=== PATIENT | female | born 1990 | race Native Hawaiian/Other Pacific Islander ===

== ENCOUNTER → 2016-11-13 | Outpatient (CLI) | payer OTHER ==
--- NOTE | 2016-11-13 10:56 | REPMRS ---
Patient History The patient states she had a clinical breast exam in 2015.Patient is nulliparous. Family history of breast cancer in mother at age 49. Indicated problem(s): palpable abnormality in the left breast. Left breast lump, patient can't feel lump today. Digital Mammo Diagnostic Bilateral: November 13, 2016 - Exam #: [id number] Bilateral CC and MLO view(s) were taken. Technologist: Minnie Kuhn Technologist FINDINGS: The breast tissue is extremely dense which could obscure a lesion on mammography. There is no evidence of cancer on this mammogram. Given the very dense breast parenchyma and family history, recommend further evaluation with MRI of the breasts. ASSESSMENT: BI-RADS/ACR category 2 mammogram. Benign finding(s). Recommendation Routine screening mammogram of both breasts in 1 year (for women over age 40). This mammogram was interpreted with the aid of an FDA-approved computer-aided dectection system. Electronically Signed By: Aguila Kingston MD 11/13/16 [id number]
== END ==
LOC: EDUNIT# 08:30 → M RAD 10:25
PROVIDERS: ATTEND Physician Assistant
DX: N63 Unspecified lump in breast (principal); Z80.3 Family history of malignant neoplasm of breast

== ENCOUNTER 2017-03-08 14:31 | Emergency (ER) | payer OTHER ==
[~2017-03-08] VITALS: Ht 157.5 cm; Wt 59.0 kg
[2017-03-08 14:33] VITALS: BP 126/68
--- NOTE | 2017-03-08 16:10 | REP ---
PELVIS AND LEFT HIP: AP view of the pelvis and AP and frogleg views of the left hip are performed. There is no acute fracture or dislocation. No intrinsic osseous pathology is seen. Hip joints appear unremarkable. There appears to be a tiny unfused ossicle at the right acetabular margin. IMPRESSION: No acute fracture or dislocation. Signed by Aguila Kingston MD 03/08/2017 04:45 P
== END 2017-03-08 16:43 | disposition home or self-care (01) ==
LOC: M ED 15:11
DX: S76.012A Strain of muscle, fascia and tendon of left hip, initial encounter (principal); X58.XXXA Exposure to other specified factors, initial encounter; Y92.89 Other specified places as the place of occurrence of the external cause; Y93.89 Activity, other specified; Y99.0 Civilian activity done for income or pay

== ENCOUNTER 2017-03-25 23:24 | Emergency (ER) | payer OTHER ==
[~2017-03-25] VITALS: Ht 157.5 cm; Wt 59.0 kg
[2017-03-25] MEDS ORDERED: PROZ10CA7 PO (23:59)
[2017-03-26] MEDS ORDERED: NS 1,000 ML IV ONE ×2 (07:30→09:15)
[2017-03-26 08:05] LABS: BASO # 0.1 K/mm3 (0.0-0.2); BASO % 0.9 % (0.0-1.0); EOS # 0.3 K/mm3 (0.0-0.50); EOS % 4.5 % (0.0-3.0); LARGE UNSTAINED CELL # 0.2 K/mm3 (0.0-0.4); LARGE UNSTAINED CELL % 2.7 % (0.0-4.0); LYMPH # 1.8 K/mm3 (1.5-6.5); LYMPH % 24.3 % (24.0-44.0); MEAN CORPUSCULAR HEMOGLOBIN 31.6 pg (27.0-33.0); MEAN CORPUSCULAR HGB CONC 33.7 g/dl (32.0-36.5); MEAN CORPUSCULAR VOLUME 93.7 fl (80.0-96.0); MONO # 0.3 K/mm3 (0.0-0.8); MONO % 5.1 % (0.0-5.0); NEUTROPHILS # 4.1 K/mm3 (1.8-7.7); NEUTROPHILS % 62.5 % (36.0-66.0); PLATELET COUNT, AUTOMATED 291 k/mm3 (150-450); RED CELL DISTRIBUTION WIDTH 12.5 % (11.5-14.5); WHITE BLOOD COUNT 6.6 K/mm3 (4.0-10.0)
[2017-03-26 08:26] LABS: ALBUMIN 3.7 GM/DL (3.2-5.2); ALBUMIN/GLOBULIN RATIO 1.06 (1.00-1.93); ALKALINE PHOSPHATASE 39 U/L (45-117); ALT/SGPT 20 U/L (12-78); ANION GAP 6 MEQ/L (8-16); AST/SGOT 10 U/L (15-37); BILIRUBIN,DIRECT 0.2 MG/DL (0.0-0.2); BILIRUBIN,TOTAL 1.3 MG/DL (0.2-1.0); BLOOD UREA NITROGEN 9 MG/DL (7-18); CALCIUM LEVEL 8.3 MG/DL (8.5-10.1); CARBON DIOXIDE LEVEL 29 MEQ/L (21-32); CHLORIDE LEVEL 103 MEQ/L (98-107); CREATININE FOR GFR 0.76 MG/DL (0.55-1.02); GLOMERULAR FILTRATION RATE > 60.0 (>60); GLUCOSE, FASTING 95 MG/DL (70-105); POTASSIUM SERUM 3.5 MEQ/L (3.5-5.1); SODIUM LEVEL 138 MEQ/L (136-145); TOTAL PROTEIN 7.2 GM/DL (6.4-8.2)
[2017-03-26 08:45] LABS: CONTROL LINE HCG INT CTR LINE PRESENT
[2017-03-26] MEDS ORDERED: ISOVUE-370 76% 100ML VIAL (Q9967) As Ordered ONE (09:06)
--- NOTE | 2017-03-26 09:49 | REP ---
Clinical: Right lower quadrant pain. Technique: Axial contrast enhanced images from the lung bases to the pubic symphysis using 100 ml Isovue 370 intravenous contrast material with coronal and sagittal re-formations. Findings: Lung bases are clear. Visualized heart and pericardium normal. Liver, spleen, pancreas, gallbladder, bilateral adrenal glands and kidneys are normal. The enteric system is incompletely evaluated due to paucity of intraperitoneal fat and complete lack of oral intraluminal contrast. Portions of the appendix are identified in the right lower quadrant appear normal and there is no right lower quadrant/pericecal inflammatory stranding to suggest acute appendicitis. Further evaluation of the pelvis demonstrates normal bladder and uterus/left adnexa. There is a small rim enhancing right ovarian cyst and small amount of free fluid in the pelvis suggesting ruptured involuting right ovarian follicle which is likely related to patient's symptoms. No diffuse ascites. No free air. No obvious adenopathy. Vasculature normal. Musculoskeletal structures are intact. Impression: 1. No definite evidence for acute appendicitis. 2. Suspected ruptured right ovarian cyst and small amount of free fluid in the right griselda pelvis likely related to patient's symptoms and correlation is recommended. Signed by Bruno Le MD 03/26/2017 09:40 A
[2017-03-26 10:32] VITALS: BP 101/60
== END 2017-03-26 11:26 | disposition home or self-care (01) ==
LOC: M ED 03-26 00:46
DX: N83.201 Unspecified ovarian cyst, right side (principal)
CPT/HCPCS: 74177; 80048; 80076; 81001; 83690; 84703; 85025; 87086; 87210; 87491; 87591; 93041; 96360; 96361; 99284; Q9967

== ENCOUNTER 2017-04-16 12:49 | Emergency (ER) | payer OTHER ==
[~2017-04-16] VITALS: Ht 157.5 cm; Wt 59.0 kg
[~2017-04-16 12:49] MED LIST: PROZ10CA7 PO
[2017-04-16] MEDS ORDERED: MORPHINE 4 MG/ML 1ML SYRINGE IV PRN (14:30)
[2017-04-16] MEDS ORDERED: ONDANSETRON 4MG/2ML VIAL (J2405) IV ONE (14:30)
[2017-04-16] MEDS ORDERED: NS 1,000 ML IV ONE (14:30)
[2017-04-16 14:51] LABS: BASO # 0.1 K/mm3 (0.0-0.2); BASO % 0.8 % (0.0-1.0); EOS # 0.3 K/mm3 (0.0-0.50); EOS % 3.2 % (0.0-3.0); LARGE UNSTAINED CELL # 0.1 K/mm3 (0.0-0.4); LARGE UNSTAINED CELL % 1.5 % (0.0-4.0); LYMPH # 1.6 K/mm3 (1.5-6.5); LYMPH % 17.4 % (24.0-44.0); MEAN CORPUSCULAR HEMOGLOBIN 31.6 pg (27.0-33.0); MEAN CORPUSCULAR HGB CONC 34.4 g/dl (32.0-36.5); MEAN CORPUSCULAR VOLUME 91.6 fl (80.0-96.0); MONO # 0.4 K/mm3 (0.0-0.8); MONO % 5.1 % (0.0-5.0); NEUTROPHILS % 71.9 % (36.0-66.0); PLATELET COUNT, AUTOMATED 326 k/mm3 (150-450); RED CELL DISTRIBUTION WIDTH 12.2 % (11.5-14.5); WHITE BLOOD COUNT 8.3 K/mm3 (4.0-10.0)
[2017-04-16 15:08] LABS: CONTROL LINE UCG INT CTR LINE PRESENT
[2017-04-16 15:18] LABS: ALBUMIN/GLOBULIN RATIO 1.03 (1.00-1.93); ALKALINE PHOSPHATASE 47 U/L (45-117); ALT/SGPT 28 U/L (12-78); ANION GAP 8 MEQ/L (8-16); AST/SGOT 14 U/L (15-37); BILIRUBIN,DIRECT 0.1 MG/DL (0.0-0.2); BILIRUBIN,TOTAL 0.7 MG/DL (0.2-1.0); BLOOD UREA NITROGEN 10 MG/DL (7-18); CALCIUM LEVEL 9.2 MG/DL (8.5-10.1); CARBON DIOXIDE LEVEL 26 MEQ/L (21-32); CHLORIDE LEVEL 102 MEQ/L (98-107); CREATININE FOR GFR 0.86 MG/DL (0.55-1.02); GLOMERULAR FILTRATION RATE > 60.0 (>60); GLUCOSE, FASTING 100 MG/DL (70-105); POTASSIUM SERUM 3.2 MEQ/L (3.5-5.1); SODIUM LEVEL 136 MEQ/L (136-145); TOTAL PROTEIN 7.9 GM/DL (6.4-8.2)
--- NOTE | 2017-04-16 16:05 | REP ---
Pelvic sonography: History: Right ovarian pain. Comparison CT study 03/26/2017. Findings: Transabdominal and transvaginal scanning are included. Uterine dimensions are normal at 7.7 x 3.7 x 6.5 cm. Endometrial echo is 0.2 cm in thickness. No focal uterine mass lesion is seen. Visualized bladder naranjo are smooth. There is complex fluid in the cul-de-sac consistent with proteinaceous content such as blood. There is a 2.0 x 1.9 x 1.2 cm hypoechoic cyst in the right ovary. Right ovarian dimensions of 3.8 x 2.2 x 2.1 cm. The left ovary measures 3.0 x 1.3 x 1.7 cm. Left ovary is unremarkable. Impression: Complex fluid in the cul-de-sac consistent with hemorrhagic fluid. 2 cm hypoechoic cyst in the right ovary, possibly hemorrhagic cyst. The findings are not specific. Ectopic cannot be excluded. Signed by Edward Carrasco MD 04/16/2017 05:23 P
[2017-04-16 16:08] VITALS: BP 117/65
[2017-04-16 16:18] LABS: HCG, SERUM QUANTITATIVE 443 MIU/ML
[2017-04-16] MEDS ORDERED: HYDR-3713 PO (16:49)
--- NOTE | 2017-04-17 16:43 | ED PDOC ---
Post-Departure Follow-Up pa discussed w dr casey us report and arranged follow up. Tyrell Frank MD Apr 17, 2017 16:43
== END 2017-04-16 17:05 | disposition home or self-care (01) ==
LOC: M ED 14:26
DX: O34.81 Maternal care for other abnormalities of pelvic organs, first trimester (principal); Z3A.01 Less than 8 weeks gestation of pregnancy
CPT/HCPCS: 76830; 76856; 80048; 80076; 81001; 83690; 84702; 84703; 85025; 93976; 96361; 96374; 96375; 99283; J2405

== ENCOUNTER 2017-06-08 22:52 | Emergency (ER) | payer OTHER ==
[~2017-06-08] VITALS: Ht 157.5 cm; Wt 57.7 kg
[2017-06-08 22:52] VITALS: BP 107/57
[~2017-06-08 22:52] MED LIST changes: +HYDR-3713 PO
[2017-06-09] MEDS ORDERED: ACETAMINOPH W/CODEINE #3 TAB UD PO ONE (00:15)
[2017-06-09] MEDS ORDERED: IBUP1TAB7 PO (00:21)
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
== END 2017-06-09 01:05 | disposition home or self-care (01) ==
LOC: M ED 22:52
DX: S93.402A Sprain of unspecified ligament of left ankle, initial encounter (principal); X50.1XXA Overexertion from prolonged static or awkward postures, initial encounter; Y92.830 Public park as the place of occurrence of the external cause; Y93.01 Activity, walking, marching and hiking; Y99.9 Unspecified external cause status

== ENCOUNTER 2017-08-09 10:00 | Emergency (ER) | payer OTHER ==
[~2017-08-09] VITALS: Ht 157.5 cm; Wt 60.8 kg
[~2017-08-09 10:00] MED LIST changes: +IBUP1TAB7 PO
[2017-08-09 12:25] LABS: CONTROL LINE UCG INT CTR LINE PRESENT
[2017-08-09] MEDS ORDERED: FLAG500T PO (13:43)
[2017-08-09] MEDS ORDERED: metroNIDAZOLE (FLAGYL) 500 MG TAB PO ONE (13:45)
[2017-08-09] MEDS ORDERED: metroNIDAZOLE (FLAGYL) 250 MG TAB As Ordered ONE (13:48)
[2017-08-09 13:53] VITALS: BP 119/72
== END 2017-08-09 13:54 | disposition home or self-care (01) ==
LOC: M ED 10:00
DX: N76.0 Acute vaginitis (principal)

== ENCOUNTER 2018-12-11 02:30 | Emergency (ER) | payer OTHER ==
[~2018-12-11] VITALS: Ht 157.5 cm; Wt 59.1 kg
[~2018-12-11 02:30] MED LIST changes: +FLAG500T PO
[2018-12-11] MEDS ORDERED: PREN1TAB26 PO (02:36)
[2018-12-11 02:37] VITALS: BP 129/71
[2018-12-11] MEDS ORDERED: KETOROLAC 60 MG/2 ML VIAL (J1885) IM ONE (03:15)
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
== END 2018-12-11 04:35 | disposition home or self-care (01) ==
LOC: MERGE 02:30 → M ED 02:30
DX: S39.012A Strain of muscle, fascia and tendon of lower back, initial encounter (principal); V49.49XA Driver injured in collision with other motor vehicles in traffic accident, initial encounter; Y92.410 Unspecified street and highway as the place of occurrence of the external cause
CPT/HCPCS: 72131; 96372; 99283; J1885

== ENCOUNTER 2019-10-01 02:17 | Inpatient (IN) | payer OTHER ==
[~2019-10-01] VITALS: Ht 157.5 cm; Wt 87.0 kg
[2019-10-01] VITALS (19 sets, daily range): BP systolic 99–152; BP diastolic 59–89
[~2019-10-01 02:17] MED LIST changes: +PREN1TAB26 PO
[2019-10-01] MEDS ORDERED: BUTORPHANOL 2 MG/ML INJ (J0595) IV ONE (06:45)
[2019-10-01] MEDS ORDERED: NS 1,000 ML IV SCH (06:45)
[2019-10-01] MEDS ORDERED: PROMETHAZINE INJ 25 MG/ML VIAL (J2550) IV ONE (06:45)
[2019-10-01] MEDS ORDERED: NS 500 ML IV ONE (06:45)
[2019-10-01] MEDS: LR 1,000 ML IV SCH ×3 (07:30→16:26)
[2019-10-01] MEDS ORDERED: LR 1,000 ML IV ONE (07:30)
[2019-10-01] MEDS ORDERED: LR 1,000 ML IV SCH (12:33)
[2019-10-01] MEDS ORDERED: PENICILLIN G POTASSIUM IV 5 MU in D5W MINI-BAG PLUS 100 ML IV STA (12:33)
[2019-10-01 12:56] LABS: HEMATOCRIT 38.5 % (36.0-47.0); HEMOGLOBIN 12.8 g/dl (12.0-15.5); MEAN CORPUSCULAR HEMOGLOBIN 31.4 pg (27.0-33.0); MEAN CORPUSCULAR HGB CONC 33.2 g/dl (32.0-36.5); MEAN CORPUSCULAR VOLUME 94.6 fl (80.0-96.0); PLATELET COUNT, AUTOMATED 132 10^3/uL (150-450); RED BLOOD COUNT 4.07 10^6/uL (4.00-5.40); WHITE BLOOD COUNT 15.4 10^3/uL (4.0-10.0)
--- NOTE | 2019-10-01 14:02 | HPEPDOC ---
Obstetrical History & Physical General Date of Admission Oct 01, 2019 at 12:33 History of Present Illness patient is a 29 yo @39+5wks presented to L&D for painful contractions. she was given IV stadol and phenergan. she rested. she has been leaking fluid since 1000 this AM. No vaginal bleeding. Chief Complaint: Contractions, term, LOF, term Information Provided By: Patient Age: 29 : 3 Term: 0 Pre-term: 0 Abortions: 2 Livin Care Care: Good Care Dating Final EDC: Oct 03, 2019 Final EDC for Daily Update: Oct 03, 2019 Final EDC by: LMP, 1st trimester (US) LMP: Dec 27, 2018 Past Medical History Past Obstetrical History : Past Obstetrical History: Primgravida (, sab x 2) Past Medical History Medical History denies Surgical History: Other (d&c for sab) Family History Significant Family History: No pertinent family hx Social History Social history denies tob/etoh/illicit rx Marital Status: Family situation: Spouse/partner home Psychosocial History: No pertinent psych hx * Smoker: non-smoker Alcohol: Denies Drugs: denies Imunizations Tdap status: current Influenza Status: current Allergies Coded Allergies: No Known Drug Allergies (Verified Allergy, Unknown, 10/01/19) Medications Scheduled Metronidazole (Flagyl) 500 Mg Tab, 500 MG PO Q8H Pnv No.95/Ferrous Fum/Folic AC ( Tablet) 1 Tab Tab, 1 TAB PO DAILY Physical Examination Physical Examination GENERAL: Alert and oriented times three. BREAST: . ABDOMEN: Gravid and non-tender to touch. FETUS: Is vertex (VTX) by sterile vaginal examination (SVE), fetus is vertex (VTX) by Vu. HEART RATE: Regular rate and rhythm. LUNGS: Clear to auscultation (CTA). EXTREMITIES: No edema/erythema/tenderness pelvic exam: grossly ruptured CE: 2/90/-1, soft, mid, forebag palpated. Vital Signs/I&O Vital Signs Date Time Temp Pulse Resp B/P (MAP) Pulse Ox O2 Delivery O2 Flow Rate FiO2 10/01/19 07:30 16 Room Air 10/01/19 07:22 97.7 78 118/68 (85) Pertinent Laboratoy Data Blood Type: B+ RBC Antibody Screen: Negative HIV: Negative Hepatitis B: Negative Rubella: Immune Varicella: Immune Chlamydia/Gonorrhea: Negative Group B Streptococcus: Positive Anatomy Ultrasound Placenta Location: Posterior Normal Anatomy: Yes Placenta Previa: No Vaginal Examination Dilation: 2cm Effacement: 90% Station: -1 Cervical Consistency: Soft Cervical Position: Middle Presentation: Cephalic presentation Assessment Heart Rate (FHR): 135 Variability: Moderate Accelerations: Positive Decelerations: None Tocometer Contractions: No Frequency: every 3-7 min. Assessment/Plan Assessment patient is a 29 yo @39+5WKS with PROM. Discussed with patient option of waiting to progress on her own vs. starting pitocin to get more regular contractions earlier. Risk of infection increases with patient discussed. Patient desires to wait to see if her body goes into labor on its own. Patient counseled on l&d monitors and risks as follows. Discussed external monitor with toco and sono for fhr. Internal monitors with IUPC and FSE as indicated. Possible use of oxytocin and AROM to augment labor as indicated. Risk of emergent delivery, infection requiring antibiotics and prolonged hospital stay, bleeding requiring blood transfusion and associated risk like anaphylatic reaction and transmission of blood borne pathogens, use of forceps and vacuum to assist vaginal delivery in an emergency or for maternal exhaustion and associated risk of vaginal tear and permanent injuries, episiotomy and pain discussed with patient. Plan Admit and orient. Speed Operator and consent. Diet: regular Group B Streptococcus (GBS) positive, start PCN prophy Labs and intravenous (IV) per unit protocol. Counseled on Pitocin and induction of labor (IOL). Anticipate [normal spontaneous delivery ()]. C-S as appropriate. KAILYN ROPER DO Oct 01, 2019 12:54
--- NOTE | 2019-10-01 16:52 | HPE ---
DATE OF ADMISSION: 10/01/2019 A 28-year-old, 3, para 0, abortio 2, last menstrual period (LMP) 12/27/2018, estimated date of confinement (EDC) 10/03/2019 at 39 and 4 weeks of gestation with contractions. No spontaneous rupture of membranes. GBS positive. She was checked in the office and apparently was 2 cm. Contractions are anywhere from 2-8 minutes apart. She came in quite distressed. Risk factors are she is GBS positive, and there is an echogenic focus; however, her quad screen was negative. PAST HISTORY: In 2013, spontaneous at 4 weeks. In 2017, spontaneous at 4 weeks. Labs are B positive, HIV negative, hepatitis negative, RPR negative, rubella immune, Varicella immune. Pap normal. Urine negative. Gonorrhea and chlamydia are negative. One-hour glucose 81. GBS positive. Blood pressure 122/80, respirations 18, pulse 90, temperature 97.5. Urine is 1000, pH 6, trace of blood. PHYSICAL EXAMINATION: She appears distressed. Symphysis fundus height is 40, vertex, occiput anterior (OA), category 1 strip. Contractions 6-8 minutes apart. Cervix exam: Posterior, 50% effaced -3, maybe 1 cm. Moderate amount of show. Presenting part is well applied to the cervix. PLAN OF MANAGEMENT: Re-evaluate her in 2-3 hours' time. Continuous monitoring.
--- NOTE | 2019-10-01 16:55 | IPN ---
DATE: 10/01/2019 This lady was seen in triage, 3, para 0 at 39 and four weeks, complaining of severe contractions. On admission, she was found to be 1 cm, thick, posterior, -3 station, category 1 strip. She was checked three hours later, still moaning and groaning regarding the contractions, and was still 1 cm, posterior, thick, category 1 strip. We elected to give her some Phenergan and Stadol and an IV bolus of normal saline followed by 125 mL an hour and reassess her in 2-3 hours' time. At present, blood pressure 160/66 based on her pain threshold and her previous blood pressure 122/80. In summary, we have a term gestation, not coping well with her contractions and not progressing at the present time with ineffective base contractions, safe to proceed.
[2019-10-01] MEDS: PENICILLIN G POTASSIUM IV 2.5 MU in IV 1 EA IV SCH ×2 (17:05→21:00)
--- NOTE | 2019-10-01 20:20 | IPNPDOC ---
Text Note Date of Service The patient was seen on 10/01/19. NOTE patient having more painful contractions. fht: 135/mod samantha/pos accel/no decel toco: ctx q 5mins ce: 2-3/90/-1 a/p patient in latent labor. Recommend starting oxytocin to augment labor for more frequent and stronger contractions. patient desires to wait longer before st arting pit. Will reassess in 6hrs. DO [place] VS,Jesse, I+O VS, Jesse, I+O Laboratory Tests 10/01/19 12:33 Vital Signs Date Time Temp Pulse Resp B/P (MAP) Pulse Ox O2 Delivery O2 Flow Rate FiO2 10/01/19 18:48 97.8 77 20 142/88 (106) 10/01/19 07:30 Room Air KAILYN ROPER DO Oct 01, 2019 20:20
[2019-10-02] VITALS (40 sets, daily range): BP systolic 104–195; BP diastolic 56–105
[2019-10-02] MEDS ORDERED: PROMETHAZINE INJ 25 MG/ML VIAL (J2550) IV ONE (00:30)
[2019-10-02] MEDS ORDERED: NALBUPHINE HCL 10 MG/ML AMP (J2300) IM ONE (00:30)
[2019-10-02] MEDS ORDERED: NALBUPHINE HCL 10 MG/ML AMP (J2300) IV ONE (00:30)
--- NOTE | 2019-10-02 01:39 | IPNPDOC ---
Text Note Date of Service The patient was seen on 10/02/19. NOTE Patient feeling painful contractions. fht: 140/mod samantha/pos accel/no decel toco: ctx q 6mins ce: 2-/-1, forebag present. a/p patient in latent labor, ruptured since 1000 yesterday. Recommend starting pitocin to augment her labor course. patient agrees. Will recheck in 4-6hrs. rupture forebag as appropriate. VS,Fishbone, I+O VS, Fishbone, I+O Laboratory Tests 10/01/19 12:33 Vital Signs Date Time Temp Pulse Resp B/P (MAP) Pulse Ox O2 Delivery O2 Flow Rate FiO2 10/01/19 18:48 97.8 77 20 142/88 (106) 10/01/19 07:30 Room Air I&O- Last 24 Hours up to 6 AM 10/02/19 06:00 Intake Total 2810 ml Output Total 1050 ml Balance 1760 ml KAILYN ROPER DO Oct 02, 2019 01:39
[2019-10-02] MEDS: PENICILLIN G POTASSIUM IV 2.5 MU in IV 1 EA IV SCH ×5 (01:42→17:06)
[2019-10-02] MEDS ORDERED: OXYTOCIN DRIP 30 UNITS in IV 1 EA IV SCH (01:45)
--- NOTE | 2019-10-02 05:06 | IPNPDOC ---
Text Note Date of Service The patient was seen on 10/02/19. NOTE come to discuss with patient regarding tracing concerns. patient continues to have painful contraction. tolerable with nubaine and phenergan. Pit was turned off due to intermittent prolonged decel. discussed with patient my concern for baby not tolerating regular strong c ontractions. Oxytocin was turned off. Explained to patient regular strong contractions are needed to progress in labor for vaginal delivery. Option of primary section offered to patient. Option of rupturing of forebag to allow her body to move into active labor on its own. Discussed possibility that baby may be stressed from regular strong contractions and we may need to do an emergent section for concern. Patient and spouse express understanding and desires to have forebag rupture to augment labor before considering section. fht: 140/mod samantha/pos accel/no decel within the last 20 minutes ce: /-1, AROM , MEC a/p patient in latent labor, baby not tolerating oxytocin augmentation. AROM, recheck 4-6hrs from now. sooner as indicated. VS,Fishbone, I+O VS, Fishbone, I+O Laboratory Tests 10/01/19 12:33 Vital Signs Date Time Temp Pulse Resp B/P (MAP) Pulse Ox O2 Delivery O2 Flow Rate FiO2 10/01/19 18:48 97.8 77 20 142/88 (106) 10/01/19 07:30 Room Air I&O- Last 24 Hours up to 6 AM 10/02/19 06:00 Intake Total 2810 ml Output Total 1050 ml Balance 1760 ml KAILYN ROPER DO Oct 02, 2019 05:06
[2019-10-02 07:59] LABS: ALT/SGPT 27 U/L (12-78); BILIRUBIN,TOTAL 1.2 MG/DL (0.2-1.0); CREATININE FOR GFR 0.85 MG/DL (0.55-1.30); GLOMERULAR FILTRATION RATE > 60.0 (>60); LDH LACTATE DEHYDROGENASE 390 U/L (84-246); URIC ACID 8.2 MG/DL (2.6-6.0)
[2019-10-02] MEDS: BUTORPHANOL 2 MG/ML INJ (J0595) IV PRN ×2 (09:08→13:26)
--- NOTE | 2019-10-02 09:29 | IPNPDOC ---
Text Note Date of Service The patient was seen on 10/02/19. NOTE Intrapartum Note, Acceptance of Care I assumed care of sAhwini at 0730 this morning. In brief, she is a 29yo with SIUP at 39w6d who presented yesterday morning for ctx and had stadol rest. After that, she had clear SROM at 1000. She declined pitocin augmentation until late last night, but it was turned off when she developed FHR decels. Initial SCE was 2cm/90%/-1. On last check by Dr. Malik at 0500 this morning, SCE was 3/90/-1. He AROMed a forebag and there was meconium present at that time. Pediatric Dr aware of mec. Receiving PCN for GBS positive. She continues to decline epidural, has received a few doses of nubain since admission, coping well with her ctx currently. Vitals wnl, normotensive, afebrile Recently FHRT bl 120's, +accels, -decels, mod samantha. Now, after dose of 2mg stadol, no accels, min-mod samantha, no decels. [place]: ctx q6-7min SCE just now 4-5/90/-1 Plan to continue to titrate pitocin per protocol Plan to re-check in 4hr or earlier as indicated Safe to proceed MD RICHARD George,Jesse, I+O VSJesse I+O Laboratory Tests 10/01/19 12:33 Vital Signs Date Time Temp Pulse Resp B/P (MAP) Pulse Ox O2 Delivery O2 Flow Rate FiO2 10/02/19 09:08 20 10/02/19 06:40 66 129/68 (88) 10/02/19 05:10 97.5 10/01/19 07:30 Room Air I&O- Last 24 Hours up to 6 AM 10/02/19 06:00 Intake Total 5010 ml Output Total 1975 ml Balance 3035 ml Temi Porter MD Oct 02, 2019 09:29
[2019-10-02] MEDS ORDERED: FENTANYL 2MCG/ML ROPIVACAINE 0.2% IN 0.9% NACL 100ML IVBAG As Ordered ONE (20:30)
--- NOTE | 2019-10-02 20:34 | IPNPDOC ---
Text Note Date of Service The patient was seen on 10/02/19. NOTE Intrapartum Note Ashwini is still coping well with ctx. It has now been 8 hours with no cervical change, since she is still 8-9cm. 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 However, patient declines at this time. She is now amenable to epidural, to see if this will help with cervical change by allowing relaxation. I will re-check cervix in 1 hour after epidural and if no change at that time, will again recommend PLTCS. Dr. Temi Porter MD VS,Jesse, I+O VS, Jesse, I+O Vital Signs Date Time Temp Pulse Resp B/P (MAP) Pulse Ox O2 Delivery O2 Flow Rate FiO2 10/02/19 18:40 74 137/83 (101) 10/02/19 18:39 98.9 20 10/01/19 07:30 Room Air I&O- Last 24 Hours up to 6 AM 10/02/19 06:00 Intake Total 5010 ml Output Total 1975 ml Balance 3035 ml Temi Porter MD Oct 02, 2019 20:04
[2019-10-02] MEDS ORDERED: ePHEDrine SULFATE 25 MG/5 ML(5MG/ML) SYRINGE As Ordered ONE (21:02)
[2019-10-02] MEDS ORDERED: AZITHROMYCIN INJ 500MG VIAL (J0456) As Ordered ONE (21:09)
[2019-10-02] MEDS ORDERED: ceFAZolin 2 GM/D5W 50 ML IV BAG (J0690 PER 500MG) As Ordered ONE (21:10)
[2019-10-02] MEDS ORDERED: OXYTOCIN INJ 10 UNITS/ML VIAL (J2590) As Ordered ONE (21:22)
[2019-10-02] MEDS ORDERED: LIDOCAINE 2% W/EPIN INJ 20ML **PRES FREE As Ordered ONE (21:23)
[2019-10-02] MEDS ORDERED: SODIUM BICARBONATE 8.4% INJ 50 ML SYRINGE As Ordered ONE (21:23)
[2019-10-02] MEDS ORDERED: MORPHINE PRES-FREE INJ 10 MG/10 ML VIAL (J2274) As Ordered ONE (21:29)
[2019-10-02] MEDS ORDERED: ONDANSETRON 4MG/2ML VIAL (J2405) IV PRN ×3 (21:31→23:15)
[2019-10-02] MEDS ORDERED: NALOXONE INJ 0.4 MG/1 ML VIAL (J2310) IV PRN ×2 (21:31)
[2019-10-02] MEDS ORDERED: NALBUPHINE HCL 10 MG/ML AMP (J2300) IV PRN ×2 (21:31→22:45)
[2019-10-02] MEDS ORDERED: METOCLOPRAMIDE INJ 10MG/2ML VIAL (J2765) IV PRN (21:31)
[2019-10-02] MEDS ORDERED: diphenhydrAMINE INJ 50MG/ML VIAL (J1200) IV PRN (21:31)
[2019-10-02] MEDS ORDERED: ONDANSETRON 4MG/2ML VIAL (J2405) As Ordered ONE (21:33)
[2019-10-02] MEDS ORDERED: KETOROLAC 60 MG/2 ML VIAL (J1885) As Ordered ONE (21:34)
[2019-10-02] MEDS ORDERED: ceFAZolin SOD 2 GM in IV 1 EA IV ONE (22:00)
[2019-10-02] MEDS ORDERED: KETOROLAC 30 MG/ML VIAL (J1885) IV PRN (22:45)
[2019-10-02] MEDS ORDERED: fentaNYL 100 MCG/2 ML INJECTION (J3010) IV PRN (22:45)
[2019-10-02] MEDS ORDERED: LR 1,000 ML IV SCH (22:45)
[2019-10-02 23:05] LABS: CORD GAS ABE A -9.3; CORD GAS HCO3 A 22.6 MEQ/L; CORD GAS PCO2 A 78.2 mmHg; CORD GAS PH A 7.078 UNITS; CORD GAS PO2 A 15.4 mmHg; CORD GAS SBC A 15.4 MEQ/L
[2019-10-02 23:06] LABS: CORD GAS O2 SAT V 46.5 %; CORD GAS PCO2 V 62.5 mmHg; CORD GAS PH V 7.145 UNITS; CORD GAS PO2 V 26.6 mmHg; CORD GAS SBC V 16.3 MEQ/L
[2019-10-02] MEDS ORDERED: MEASLES,MUMPS,RUBELLA VACCINE INJ (MMR-II) (90707) SC SCH (23:15)
[2019-10-02] MEDS ORDERED: PERCOCET 5MG/325MG TAB PO PRN ×2 (23:15)
[2019-10-02] MEDS ORDERED: RHOGAM 300 MCG (1500 IU) INJ (J2790) IM SCH (23:15)
[2019-10-02] MEDS ORDERED: AZITHROMYCIN INJ 500 MG, VIAL MATE ADAPTER 1 EACH in D5W 250 ML IV ONE (23:30)
--- NOTE | 2019-10-02 23:44 | IPNPDOC ---
Text Note Date of Service The patient was seen on 10/02/19. NOTE Patient was taken urgently to OR for section for non-reassuring heart tracing- persistent bradycardia in the 90's/low 100's. Thick meconium noted on exam just prior to going to OR. section was uncomplicated. She received 2g IV anceph and 500mg IV azithromycin for abx ppx. Please see dictated op report for further details Cord gases: pHa 7.078, BE -9.3, pHv 7.145, BE -9 Dr. Temi Porter MD VS,Jesse, I+O VS, Jesse, I+O Vital Signs Date Time Temp Pulse Resp B/P (MAP) Pulse Ox O2 Delivery O2 Flow Rate FiO2 10/02/19 23:00 96.9 92 108/59 (75) 99 10/02/19 22:32 16 10/01/19 07:30 Room Air I&O- Last 24 Hours up to 6 AM 10/02/19 06:00 Intake Total 5010 ml Output Total 1975 ml Balance 3035 ml Temi Porter MD Oct 02, 2019 23:44
[2019-10-03] VITALS (9 sets, daily range): BP systolic 93–118; BP diastolic 51–73
[2019-10-03] MEDS: LR 1,000 ML IV SCH ×3 (00:49→15:14)
[2019-10-03] MEDS: KETOROLAC 30 MG/ML VIAL (J1885) IV SCH ×3 (04:08→16:07)
[2019-10-03 07:32] LABS: HEMATOCRIT 27.5 % (36.0-47.0); MEAN CORPUSCULAR HEMOGLOBIN 31.8 pg (27.0-33.0); MEAN CORPUSCULAR HGB CONC 33.5 g/dl (32.0-36.5); MEAN CORPUSCULAR VOLUME 95.2 fl (80.0-96.0); PLATELET COUNT, AUTOMATED 115 10^3/uL (150-450); RED BLOOD COUNT 2.89 10^6/uL (4.00-5.40); WHITE BLOOD COUNT 12.2 10^3/uL (4.0-10.0)
[2019-10-03 07:38] LABS: HEMOGLOBIN 9.2 g/dl (12.0-15.5)
--- NOTE | 2019-10-03 09:34 | IPNPDOC ---
Progress Note Date of Service: Oct 03, 2019 Day#: 1 Progress Note POD 1 SUBJECT: Ashwini is a 29yo s/p uncomplicated PLTCS on 10/02 for arrest of dilation/NRFHT at term after presenting with PROM and having augmentation of labor, doing well post-op/ day # 1. She had >24hr ROM and received PCN during her labor course for GBS positive. She has ambulated without issue, maria in place draining clear yellow urine, has tolerated clear liquids so far and going to try a regular breakfast. Breast feeding without issue. Reports lochia is like a period. She denies f/c/n/v/ SOB/CP. OBJECTIVE: VITAL SIGNS: Within normal limits, afebrile. Alert and oriented times three. Abdomen: Fundus firm at U-2. Soft, appropriately tender to palpation. Pfannensteil incision covered by dry sterile dressing with no strike-through. Pre-op H/H: 12.8/38.5 Post-op H/H: 9.2/27.5 ASSESSMENT: Ashwini is a 29yo s/p uncomplicated PLTCS on 10/02 for arrest of dilation/NRFHT at term after presenting with PROM and having augmentation of labor, doing well post-op/ day # 1. Vitals within normal limits, afebrile, hemodynamically stable with no evidence of infection. PLAN: 1. Routine post-op/post- care 2. Percocet and Motrin for pain. 3. Encourage breast feeding and ambulation and use of IS. SCDs until fully ambulatory. 4. Regular diet 5. Maria to be removed 24hr post-op with 4 hour due to void 6. Ok to shower 24hr after surgery Dr. Temi Porter MD VS, I&O, [facility]H, [facility] Vital Signs/I&O Vital Signs Date Time Temp Pulse Resp B/P (MAP) Pulse Ox O2 Delivery O2 Flow Rate FiO2 10/03/19 06:27 98.5 80 18 107/53 (71) 98 Room Air I&O- Last 24 Hours up to 6 AM 10/03/19 06:00 Intake Total 5100 ml Output Total 3150 ml Balance 1950 ml Laboratory Data 24H LABS Laboratory Tests 2 10/02/19 21:25: Cord Arterial Blood pH 7.078, Cord Arterial Blood PCO2 78.2, Cord Arterial Blood PO2 15.4, Cord Arterial Blood HCO3 22.6, Cord Arterial Blood Total CO2 25.0, Cord Arterial Blood Base Excess -9.3, Cord Arterial Base Excess (Standard 15.4, Cord Arterial Bld Oxygen Saturation 17.0, Cord Venous Blood pH 7.145, Cord Venous Blood PCO2 62.5, Cord Venous Blood PO2 26.6, Cord Venous Blood HCO3 21.0, Cord Venous Blood Total CO2 23.0, Cord Venous Base Excess (Actual) -9.0, Cord Venous Base Excess (Standard) 16.3, Cord Venous Blood Oxygen Saturation 46.5 10/03/19 06:52: Nucleated Red Blood Cells % (auto) 0.0 CBC/BMP Laboratory Tests 10/03/19 06:52 Temi Porter MD Oct 03, 2019 09:34
[2019-10-03] MEDS: DOCUSATE SODIUM 100 MG CAP PO SCH ×2 (10:26→20:25)
[2019-10-03] MEDS: PRENATAL VITAMINS CHEWABLE TABLET PO SCH (10:26)
[2019-10-04] MEDS: IBUPROFEN 800 MG TAB PO SCH ×4 (00:24→23:27)
[2019-10-04 06:00] VITALS: BP 117/72
[2019-10-04] MEDS: DOCUSATE SODIUM 100 MG CAP PO SCH ×2 (08:35→20:12)
[2019-10-04] MEDS: PRENATAL VITAMINS CHEWABLE TABLET PO SCH (08:39)
--- NOTE | 2019-10-04 08:58 | IPNPDOC ---
Progress Note Date of Service: Oct 04, 2019 Progress Note Ashwini is a 29 yo G3 now P1 who is POD#2 s/p uncomplicated PLTCS late at night on 02Oct2019 for NRFHT after being admitted for PROM. No acute events over last 24 hours. Ms. Mistry feels well this morning. She is tolerating a regular diet and denies any nausea or vomiting. She is ambulating, voiding, and has minimal lochia. Her pain is well controlled with her current pain regimen. Vitals - VSS, normotenisive, afebrile, non tachycardic General - AAOX3, sitting up in bed, pleasant and conversant, NAD Abdomen - Soft, non distended. Bandage removed from incision. Incision clean/dry/intact. Steri strips in place. No tenderness to palpation. Fundus firm at U-2. Extremities - No edema UO - appropriate Labs: H/H stable both pre and post op. Ms. Mistry is doing well and is making an appropriate / postoperative recovery. Plan to continue routine post op / care. Anticipate discharge home tomorrow. All patient questions answered. Marybel Le DO VS, I&O, 24H, Fishbone Vital Signs/I&O Vital Signs Date Time Temp Pulse Resp B/P (MAP) Pulse Ox O2 Delivery O2 Flow Rate FiO2 10/04/19 06:00 98.2 73 16 117/72 (87) 93 Room Air I&O- Last 24 Hours up to 6 AM 10/04/19 06:00 Intake Total 600 ml Output Total 3300 ml Balance -2700 ml MARYBEL LE DO Oct 04, 2019 08:58
[2019-10-04 10:00] VITALS: BP 114/62
[2019-10-04 14:00] VITALS: BP 113/65
[2019-10-04 17:59] VITALS: BP 122/68
[2019-10-05 06:43] VITALS: BP 134/76
[2019-10-05] MEDS: DOCUSATE SODIUM 100 MG CAP PO SCH (08:11)
[2019-10-05] MEDS: PRENATAL VITAMINS CHEWABLE TABLET PO SCH (08:12)
[2019-10-05] MEDS: IBUPROFEN 800 MG TAB PO SCH (08:13)
[2019-10-05] MEDS ORDERED: IBUP80TA PO (08:24)
[2019-10-05] MEDS ORDERED: PERCOCET PO ×2 (08:24)
--- NOTE | 2019-10-05 08:25 | DS.PDOC ---
Discharge Summary General Date of Admission Oct 01, 2019 at 12:33 Date of Discharge 10/05/19 Discharge Summary HOSPITAL COURSE: Ms. Mistry is a 29 yo G3 now P1 who underwent an uncomplicated PLTCS in the campaign worker hours of 03Oct2019 for NRFHT after being admitted for PROM. Her course was unremarkable. On her day of discharge she met all appropriate discharge criteria. She was ambulating, voiding, tolerating a regular diet, had minimal lochia, and her pain was well controlled with PO pain medications. DISCHARGE MEDICATIONS: Please see below. ALLERGIES: Please see below. PHYSICAL EXAMINATION ON DISCHARGE: VITAL SIGNS: Please see below. GENERAL: AAOX3, sitting up in bed, NAD CARDIOVASCULAR EXAMINATION: RRR ABDOMINAL EXAMINATION: Fundus firm at U-2. Incision well appearing and clean/dry/intact. Steri strips in place. Minimal tenderness to palpation. EXTREMITIES: No edema PSYCHIATRIC EXAMINATION: Affect appropriate LABORATORY DATA: Please see below. ACTIVITY: Pelvic rest for 6 weeks. No heavy lifting or extremely strenuous activity for 6 weeks. DIET: Regular DISCHARGE PLAN: Discharge home DISPOSITION: Discharge on 05Oct2019 DISCHARGE INSTRUCTIONS: 1. Pelvic rest 2. No heavy lifting or extremely strenuous activity for 6 weeks. ITEMS TO FOLLOWUP ON ON OUTPATIENT: 1. Incision check in 2 weeks DISCHARGE CONDITION: Stable TIME SPENT ON DISCHARGE: Greater than 20 minutes. Marybel Le DO Vital Signs/I&Os Vital Signs Date Time Temp Pulse Resp B/P (MAP) Pulse Ox O2 Delivery O2 Flow Rate FiO2 10/05/19 06:43 97.8 80 16 134/76 (95) 98 Room Air Discharge Medications Scheduled Ibuprofen (Ibuprofen) 800 Mg Tablet, 800 MG PO Q8H Pnv No.95/Ferrous Fum/Folic AC ( Tablet) 1 Tab Tab, 1 TAB PO DAILY, (Reported) Scheduled PRN Oxycodone/Acetaminophen (Oxycodone-Acetaminophen 5-325) 1 Each Tablet, 1 TAB PO Q4H PRN for MILD/MODERATE PAIN (PS 1-7) Oxycodone/Acetaminophen (Oxycodone-Acetaminophen 5-325) 1 Each Tablet, 2 TAB PO Q6H PRN for SEVERE PAIN (PS 8-10) Allergies Coded Allergies: No Known Drug Allergies (Verified Allergy, Unknown, 10/01/19) MARYBEL LE DO Oct 05, 2019 08:25
--- NOTE | 2019-10-06 08:25 | RO ---
DATE OF OPERATION: 10/02/2019 SURGEON: Temi Porter MD STORE RECEIVER: customer service technician. CLINICAL SERVICE: Obstetrics. PREOPERATIVE DIAGNOSIS: Premature rupture of membranes, arrest of dilation and nonreassuring heart tracing. POSTOPERATIVE DIAGNOSIS: Premature rupture of membranes, arrest of dilation and nonreassuring heart tracing. OPERATION PERFORMED: Primary low transverse section. ANESTHESIA: INDICATION FOR OPERATION: Ashwini is a 29-year-old, (G) 3, now para (P) 1-0-2-1, who had premature rupture of membranes at 39 weeks 6 days and had augmentation of her labor. She reached 8 cm of dilation but made no car changer the course of 8 hours. She was initially declining section, but after she received an epidural there were some heart rate decelerations and new meconium and in the setting of already having diagnosis of arrest of dilation and being counseled for section, at that point I re-counseled her and let her know that I wanted to proceed with an urgent section, which she did agree to at that time. MATERIAL FORWARDED TO THE LAB FOR EXAMINATION: Cord gases; pH arterial 7.078, base excess negative 9.3, pH venous 7.145, base excess negative 9. DESCRIPTION OF FINDINGS: Male infant in cephalic presentation. score 7 and 9. Weight 3700 grams or 8 pounds 3 ounces. Normal appearing uterus, fallopian tubes and ovaries. INFECTION CLASSIFICATION: II ESTIMATED BLOOD LOSS: 700 mL. URINE OUTPUT: 700 mL. IV FLUIDS: 1500 mL lactated Ringer's. DESCRIPTION OF OPERATION: After obtaining informed consent, Ashwini was taken to the operating room. Doppler tones in the operating room (OR) were in the 130s, though previously in the labor room she had a prolonged deceleration down to the 90s low 100s. She had a Merlos catheter in place. Bilateral sequential compression devices were placed. She had previously received an epidural. She was prepped and draped in normal sterile fashion in the dorsal supine position with a left lateral tilt. Time-out was performed to confirm patient name, date of , procedure and indication. The team was in agreement. Epidural anesthesia was found to be adequate using an Allis clamp. She received 2 grams of IV Ancef prophylactically as well as 500 mg of IV azithromycin. She had been receiving penicillin during her labor course for group B streptococcus (GBS) positive status and notably, she had rupture of membranes greater than 24 hours. A Pfannenstiel skin incision was made with a scalpel and carried through to the underlying layer of fascia. Fascia was incised in the midline and the incision was extended laterally with Avila scissors. Superior and inferior aspects of the fascial incision were grasped with Hai clamps, elevated and the underlying rectus muscles were dissected off bluntly and sharply. Peritoneum was entered digitally and the rectus muscles were in the midline. Peritoneal incision was extended superiorly and inferiorly with good visualization of the bladder. Bladder blade was inserted and the vesicouterine peritoneum was identified, grasped with pickups and entered sharply with Metzenbaum scissors. The incision was extended laterally and bladder flap was created digitally. Bladder blade was reinserted and the lower uterine segment was scored in a transverse fashion with a scalpel. The uterus was entered bluntly and the incision was extended with traction. The bladder blade was removed and infant's head was elevated to the level of the incision. Fundal pressure was applied. The head was delivered atraumatically in the occiput anterior (OA) position. Anterior shoulder, posterior shoulder and corpus were delivered without difficulty. Notably there was meconium on entry to the uterus, which was diagnosed prior to going to the operating room. Infant was immediately handed over to the nursing team after clamping the cord times two and cutting. Cord gases were obtained. The placenta was removed with traction on the cord and uterine massage, and the uterus was exteriorized and cleared of all clot and debris. Uterine incision was repaired with #0 Vicryl suture in a running locking fashion and a second layer of #0 Monocryl was used to close the hysterotomy incision in imbricating fashion. Uterine incision was inspected and hemostasis was noted. Posterior cul-de-sac was irrigated and the uterus was returned to the abdomen. Gutters were cleared of all clots and hemostasis was noted. Peritoneum was closed using #3-0 Vicryl suture in a running fashion. Fascia was reapproximated with #0 Vicryl suture in a running fashion. Subcutaneous tissue was copiously irrigated. Candis fascia was reapproximated using #3-0 Vicryl suture in a running fashion. Skin edges were reapproximated using three inverted interrupted stitches using #3-0 Vicryl suture, followed by a running subcuticular stitch using #4-0 Monocryl suture. Incision was cleaned using wet lap dried with a dry lap. Steri-Strips were applied in usual fashion perpendicular to the Pfannenstiel incision and a dry sterile dressing was applied. Vagina was cleared of all blood clot without active bleeding noted. Fundus was firm at the umbilicus. All counts were correct times two. The procedure was without complication. The patient tolerated the procedure well. She was taken to the recovery room on labor and delivery in stable condition.
== END 2019-10-05 12:05 | disposition home or self-care (01) | DRG 773 ==
LOC: M LDO 02:17 → M LDI 12:33 → M OBS 10-03 00:20
PROVIDERS: ADMIT Obstetrics & Gynecology; ATTEND Obstetrics & Gynecology
PROC: 10D00Z1 Extraction of Products of Conception, Low, Open Approach (ICD-10-PCS; principal; 2019-10-02 21:34)
DX: O42.02 Full-term premature rupture of membranes, onset of labor within 24 hours of rupture (principal); Z3A.39 39 weeks gestation of pregnancy; O99.824 Streptococcus B carrier state complicating childbirth; O76 Abnormality in fetal heart rate and rhythm complicating labor and delivery; O77.0 Labor and delivery complicated by meconium in amniotic fluid; O62.0 Primary inadequate contractions; Z37.0 Single live birth